=== PATIENT | female | born 1975 | race Caucasian/White ===

== ENCOUNTER 2019-02-04 19:34 | Emergency (ER) | payer SELFPAY ==
[~2019-02-04] VITALS: Ht 154.9 cm; Wt 45.5 kg
[~2019-02-04 19:34] MED LIST: CELEXA10 MG PO; PEN-VEE K500 MG PO
[2019-02-04] MEDS ORDERED: TRAMADOL 50 MG TAB PO (20:09)
[2019-02-04] MEDS ORDERED: PENICILLIN-VK500 M1 PO (20:09)
[2019-02-04 20:31] VITALS: BP 134/96
== END 2019-02-04 20:31 | disposition home or self-care (01) ==
LOC: ED 19:34
DX: K08.89 Other specified disorders of teeth and supporting structures (principal)